=== PATIENT | female | born 1950 | race Caucasian/White ===

== ENCOUNTER 2017-07-07 19:56 | Emergency (ER) | payer MEDICARE, OTHER ==
[~2017-07-07] VITALS: Ht 172.7 cm; Wt 115.0 kg
[2017-07-07] MEDS ORDERED: METF1000 PO ×2 (20:08→20:14)
[2017-07-07] MEDS ORDERED: LEVO.05 PO (20:08)
[2017-07-07] MEDS ORDERED: VENL75TA2 PO (20:14)
[2017-07-07] MEDS ORDERED: LATA0.002 EACH EYE (20:14)
[2017-07-07] MEDS ORDERED: ASPI-516 CHEW (20:14)
[2017-07-07] MEDS ORDERED: DULA0.5I SQ (20:14)
[2017-07-07] MEDS ORDERED: LEVO112T2 PO (20:14)
[2017-07-07] MEDS ORDERED: CELE200C PO (20:14)
[2017-07-07] MEDS ORDERED: OMEP40CA2 (20:14)
[2017-07-07] MEDS ORDERED: SIMV40TA PO (20:14)
[2017-07-07 20:15] VITALS: BP 151/70; PULSE 80; RESP 16; O2SAT 98
[2017-07-07] MEDS ORDERED: traMADol HCL 50 MG TAB PO ONE (20:15)
--- NOTE | 2017-07-07 21:05 | RADRPT ---
EXAM DATE/TIME: 07/07/2017 20:21 [facility] COMPARISON: SHOULDER RIGHT COMPLETE (>2VWS), July 07, 2017, 20:25. INDICATIONS : Chest pain. Patient fell tonight. MEDICAL HISTORY : None. SURGICAL HISTORY : None. ENCOUNTER: Initial ACUITY: 1 day PAIN SCORE: 0/10 LOCATION: Bilateral chest FINDINGS: The heart size is normal. The lungs are free of focal consolidation. There is a cortical nodule seen at the right base. No effusion is seen. There is fracturing seen at the superior lateral right humeru s at the greater tubercle. CONCLUSION: 1. Right proximal humeral fracture. 2. Questionable nodule at the right lung base. This could be further evaluated with a CT examination the chest. This could be performed as an outpatient. Carlos Kang MD on July 07, 2017 at 21:01 Board Certified Radiologist. This report was verified electronically.
--- NOTE | 2017-07-07 21:09 | RADRPT ---
EXAM DATE/TIME: 07/07/2017 20:25 [facility] COMPARISON: No previous studies available for comparison. INDICATIONS : Right shoulder pain. Patient fell tonight. MEDICAL HISTORY : None. SURGICAL HISTORY : None. ENCOUNTER: Initial ACUITY: 1 day PAIN SCORE: 7/10 LOCATION: Right shoulder. FINDINGS: Multiple view examination of the right shoulder demonstrates a fracture at the base of the greater tu bercle. No other fracture seen. The glenohumeral and clavicular joints are normally aligned. There is hypertrophic change at the acromioclavicular joint. Bony mineralization is normal. CONCLUSION: Fracture at the base of the right greater tubercle. Carlos Kang MD on July 07, 2017 at 21:06 Board Certified Radiologist. This report was verified electronically.
--- NOTE | 2017-07-07 21:10 | RADRPT ---
EXAM DATE/TIME: 07/07/2017 20:30 [facility] COMPARISON: No previous studies available for comparison. INDICATIONS : Right arm pain. Patient fell tonight. MEDICAL HISTORY : None. SURGICAL HISTORY : None. ENCOUNTER: Initial ACUITY: 1 day PAIN SCORE: 7/10 LOCATION: Right humerus. FINDINGS: Two view examination of the right humerus demonstrates a fracture at the base of the greater tubercle . The remaining aspect of the humerus is intact. The glenohumeral and elbow joints are aligned. CONCLUSION: Fracturing at the base of the right greater tubercle. Carlos Kang MD on July 07, 2017 at 21:07 Board Certified Radiologist. This report was verified electronically.
--- NOTE | 2017-07-07 22:15 | PD ---
HPI Chief Complaint: Fall Time Seen by Provider: 20:06 Travel History International Travel<30 days: No Contact w/Intl Traveler<30days: No Traveled to known affect area: No History of Present Illness HPI Patient is a 66 year old female who comes in after a fall today. She says she tripped on the rug at the hotel where she is staying. She says she fell onto her right side, her shoulder taking the brunt of the fall. She denies hitting her head or any LOC. She was in her usual state of health prior to the fall. She complains of shoulder pain and right rib pain. She denies SOB, fever, chills , or dizziness. PFSH Past Medical History Asthma: Yes Diabetes: Yes Patient Takes Glucophage: Yes (08:30 07/07/17) Diminished Hearing: No Thyroid Disease: Yes Past Surgical History Abdominal Surgery: Yes Other Surgery: Yes (GASTRIC BYPASS) Social History Alcohol Use: Yes (OCC) Tobacco Use: No Substance Use: No Allergies-Medications (Allergen,Severity, Reaction): Coded Allergies: No Known Allergies (Unverified , 07/07/17) Reported Meds & Prescriptions Reported Meds & Active Scripts Active Reported Levothyroxine (Levothyroxine Sodium) 112 Mcg Tab 112 Mcg PO DAILY Venlafaxine ER 24 HR (Venlafaxine HCl) 75 Mg Tab 75 Mg PO DAILY Simvastatin 40 Mg Tab 40 Mg PO HS Omeprazole 40 Mg Cap 40 Mg DAILY Celebrex (Celecoxib) 200 Mg Cap 200 Mg PO DAILY Metformin (Metformin HCl) 1,000 Mg Tab 1,000 Mg PO BIDPC Trulicity Inj (Dulaglutide Inj) 1.5 Mg/0.5 Ml Pen 1.5 Mg SQ Q7D Latanoprost Opth Drops (Latanoprost) 0.005% Drops 1 Drop EACH EYE HS Refrigerate until opened. Aspirin 81 Mg Chew 81 Mg CHEW DAILY Review of Systems Except as stated in HPI: all other systems reviewed are Neg General / Constitutional: No: Fever, Chills Eyes: No: Blurred Vision HENT: No: Headaches, Lightheadedness Respiratory: No: Shortness of Breath Gastrointestinal: No: Nausea, Vomiting Musculoskeletal: Positive: Pain Skin: No Rash Neurologic: No: Weakness, Dizziness, Syncope Physical Exam Narrative GENERAL: Awake and alert, in no acute distress. SKIN: Focused skin assessment warm/dry. No wounds or signs of infection. HEAD: Atraumatic. Normocephalic. EYES: Pupils equal and round. No scleral icterus. EOMI. ENT: Mucous membranes pink and moist. NECK: Trachea midline. No JVD. No cervical spine tenderness. CARDIOVASCULAR: Regular rate and rhythm. No murmur appreciated. RESPIRATORY: No accessory muscle use. Clear to auscultation. Breath sounds equal bilaterally. MUSCULOSKELETAL: No obvious deformities. No clubbing. No cyanosis. No edema. Tender to palpation of the right humeral head. No spinal tenderness. No tenderness to the pelvis. NEUROLOGICAL: Awake and alert. No obvious cranial nerve deficits. Motor grossly within normal limits. Normal speech. PSYCHIATRIC: Appropriate mood and affect; insight and judgment normal. Data Data Last Documented VS Vital Signs Date Time Temp Pulse Resp B/P (MAP) Pulse Ox O2 Delivery O2 Flow Rate FiO2 07/07/17 22:51 66 16 103/52 (69) 98 Room Air Orders Orders Shoulder, Complete (>2vws) (07/07/17 ) Humerus (Min 2vws) (07/07/17 ) Chest, Single Ap (07/07/17 ) Knee, Complete (4vws) (07/07/17 ) Tramadol (Ultram) (07/07/17 20:15) Support Splint (07/07/17 20:47) Sling And Swathe (07/07/17 ) Acetamin-Hydrocod 325-5 Mg ([place] 5-325 (07/07/17 22:45) MDM Medical Decision Making Medical Screen Exam Complete: Yes Emergency Medical Condition: Yes Medical Record Reviewed: Yes Differential Diagnosis shoulder fracture vs sprain vs dislocation vs rib fracture Narrative Course Patient is a 66-year-old female who comes in after a fall complaining of right shoulder pain. Exam shows pain with movement of the right shoulder. X-ray of the shoulder, humerus, chest and knee performed. Shoulder x-ray shows a fracture of the humerus. Last 24 hours Impressions Shoulder X-Ray 07/07/17 0000 Signed Impressions: Service Date/Time: Friday, July 07, 2017 20:25 - CONCLUSION: Fracture at the base of the right greater tubercle. Carlos Kang MD Knee X-Ray 07/07/17 0000 Signed Impressions: Service Date/Time: Friday, July 07, 2017 20:36 - CONCLUSION: No acute abnormality seen. Carlos Kang MD Humerus X-Ray 07/07/17 0000 Signed Impressions: Service Date/Time: Friday, July 07, 2017 20:30 - CONCLUSION: Fracturing at the base of the right greater tubercle. Carlos Kang MD Chest X-Ray 07/07/17 0000 Signed Impressions: Service Date/Time: Friday, July 07, 2017 20:21 - CONCLUSION: 1. Right proximal humeral fracture. 2. Questionable nodule at the right lung base. This could be further evaluated with a CT examination the chest. This could be performed as an outpatient. Carlos Kang MD Patient placed in a sling. Given pain medicine. She is advised of the finding in her chest x-ray and advised follow-up with her doctor for CT of her chest. She understands the meaning of the results and says she will follow-up with her doctor. She is from [place] and will follow up with her orthopedic surgeon when she returns next week. Advised return to the ED as needed for any worsening symptoms. Diagnosis Primary Impression: Fracture, humerus Qualified Codes: S42.294A - Other nondisplaced fracture of upper end of right humerus, initial encounter for closed fracture Patient Instructions: General Instructions, Proximal Humerus Fracture (ED) Additional Instructions: Wear your sling for the next few weeks and until you see your orthopedic surgeon. Take pain medicine as needed. There was a nodule seen on your chest X -ray. You need to have a CT of your chest to evaluate this. Return to the ED as needed for any worsening symptoms. Scripts Hydrocodone-Acetaminophen ([place]) 5 Mg-325 Mg Tab 1 TAB PO Q6H Y for PAIN, #12 TAB 0 Refills Prov: Ursula Hidalgo MD 07/07/17 Disposition: 01 DISCHARGE HOME Condition: Stable Ursula Hidalgo MD July 07, 2017 22:15
--- NOTE | 2017-07-07 22:34 | RADRPT ---
EXAM DATE/TIME: 07/07/2017 20:36 [facility] COMPARISON: No previous studies available for comparison. INDICATIONS : Left knee pain. Patient fell tonight. MEDICAL HISTORY : None. SURGICAL HISTORY : None. ENCOUNTER: Initial ACUITY: 1 day PAIN SCORE: 7/10 LOCATION: Left knee. FINDINGS: There is extensive chondrocalcinosis seen throughout the knee joint being most prominent medially. Th ere is mild spurring at the posterior inferior patella. No effusion is seen. No fracture seen. Vascul ar calcifications are seen. CONCLUSION: No acute abnormality seen. Carlos Kang MD on July 07, 2017 at 22:29 Board Certified Radiologist. This report was verified electronically.
[2017-07-07] MEDS ORDERED: ACETAMINOPHEN/HYDROcodone 325 MG/5 MG TAB PO ONE (22:45)
[2017-07-07 22:51] VITALS: BP 103/52; PULSE 66; RESP 16; O2SAT 98
[2017-07-07] MEDS ORDERED: NORC5TAB PO (22:59)
== END 2017-07-07 23:15 | disposition home or self-care (01) ==
LOC: NEPE 19:56
DX: S42.294A Other nondisplaced fracture of upper end of right humerus, initial encounter for closed fracture (principal); W18.09XA Striking against other object with subsequent fall, initial encounter; Y92.59 Other trade areas as the place of occurrence of the external cause
CPT/HCPCS: 29240; 71045; 73030; 73060; 73564